=== PATIENT | female | born 1960 | race Caucasian/White ===

== ENCOUNTER → 2017-03-06 | Outpatient (CLI) | payer OTHER ==
[~2017-03-06] MED LIST: ASPIRIN EC81 M1 PO; CLEOCIN HCL300 MG PO; CLONAZEPAM OR; CRESTOR5 MG PO; DULERA 100 MCG/13 GM INH; EFFEXOR XR150 MG OR; ESTRACE2 MG OR; HYDROCODON-ACE1 EAC1 PO; HYDROCODON-ACE1 EAC8 PO; HYDROCODON-ACE1 EACH OR; KLONOPIN0.5 MG PO; LEVOTHYROXINE0.05 MG OR; LORTAB 5 MG/5001 TA1 PO; MOM OR; NASAL DECONGESTA5 MG; OMEPRAZOLE-BIC1 EAC1 OR; PROVERA10 MG OR; SIMVASTATIN40 MG OR; TRAMADOL 50 MG50 MG PO; VICODIN 5-5001 EACH PO; VITAMIN D31000 UNI2 PO
== END ==
LOC: RAD 13:22
DX: N64.4 Mastodynia (principal); N64.52 Nipple discharge